=== PATIENT | male | born 1935 | race Caucasian/White ===

== ENCOUNTER 2017-04-17 17:33 | Inpatient (IN) | payer OTHER ==
[~2017-04-17] VITALS: Ht 177.8 cm; Wt 87.5 kg
[~2017-04-17 17:33] MED LIST: ASPIR 8181 M1 PO; CENTRUM SILVER1 EAC1 PO; CIALIS5 MG PO; LIPITOR40 MG PO; LOPRESSOR25 MG PO; MAXZIDE 37.5 M1 EACH PO; MICARDIS40 MG PO; MICARDIS80 MG PO; NEXIUM40 MG PO; PACERONE200 MG PO; PREVACID30 MG PO; PROSTATE SR SO1 EACH PO; VYTORIN 10/21 TABLET PO; XARELTO20 MG PO; ZYRTEC10 M2 PO
[2017-04-17 18:27] LABS: INTER. NORMALIZED RATIO 1.7
[2017-04-17 18:30] LABS: HEMATOCRIT 18.6 % (38.0-50.0); MCH 18.5 PG (29.0-34.0); MCHC 26.9 G/DL (30.0-36.0); MCV 68.9 FL (86-99); NRBC (%) 0.3 /100 WBC (0-0); PLATELET COUNT 312 K/uL (156-360); PTT 38.2 SEC (25-37); RBC DIS.WIDTH-CV 16.1 % (11.8-14.6); RBC DIS.WIDTH-SD 40.1 % (39-53); WHITE BLOOD COUNT 7.4 K/uL (4.1-10.2)
[2017-04-17 18:43] LABS: CHLORIDE 110 MEQ/L (99-109); SODIUM 141 MEQ/L (136-147)
[2017-04-17 18:48] LABS: CREATININE 1.2 MG/DL (0.6-1.3); GFR ESTIMATE (CALCULATED) > 59 mL/min/ (58.99-99999); GLUCOSE 109 mg/dL (70-99); UREA NITROGEN (BUN) 23 mg/dL (9-23)
[2017-04-17 19:56] VITALS: BP 137/68
[2017-04-17 20:18] VITALS: BP 166/88
[2017-04-17 21:18] VITALS: BP 148/70
[2017-04-17 21:57] VITALS: BP 187/88
[2017-04-17 22:31] VITALS: BP 165/85
[2017-04-17 22:59] VITALS: BP 162/66
[2017-04-18] VITALS (16 sets, daily range): BP systolic 132–189; BP diastolic 64–90
[2017-04-18 07:19] LABS: HEMATOCRIT 21.4 % (38.0-50.0); HEMOGLOBIN 6.3 G/DL (12.5-16.6); MCH 21.4 PG (29.0-34.0); MCHC 29.4 G/DL (30.0-36.0); MCV 72.5 FL (86-99); NRBC (%) 0.3 /100 WBC (0-0); PLATELET COUNT 250 K/uL (156-360); RBC DIS.WIDTH-CV 18.1 % (11.8-14.6); RBC DIS.WIDTH-SD 46.5 % (39-53); RED BLOOD COUNT 2.95 M/uL (4.00-5.50); WHITE BLOOD COUNT 6.6 K/uL (4.1-10.2)
[2017-04-18 07:21] LABS: INTER. NORMALIZED RATIO 1.4
[2017-04-18 07:50] LABS: ALBUMIN 3.5 G/DL (3.2-4.8); CHLORIDE 112 MEQ/L (99-109); CREATININE 1.1 MG/DL (0.6-1.3); GFR ESTIMATE (CALCULATED) > 59 mL/min/ (58.99-99999); GLUCOSE 84 mg/dL (70-99); PHOSPHORUS 2.6 mg/dL (2.5-4.9); POTASSIUM 3.9 MEQ/L (3.7-5.4); SODIUM 143 MEQ/L (136-147); UREA NITROGEN (BUN) 20 mg/dL (9-23)
[2017-04-18 15:54] LABS: BASOPHIL (%) 0.6 % (0-1); BASOPHIL COUNT 0.1 K/uL (0-0.1); EOSINOPHIL (%) 0.9 % (0-5); EOSINOPHIL COUNT 0.1 K/uL (0-0.3); HEMATOCRIT 29.4 % (38.0-50.0); IMMATURE GRANULOCYTE (%) 0.9 % (0.0-0.7); LYMPHOCYTE (%) 16.8 % (15-42); LYMPHOCYTE COUNT 1.6 K/uL (1.0-2.8); MCH 22.4 PG (29.0-34.0); MCHC 29.9 G/DL (30.0-36.0); MCV 74.8 FL (86-99); MONOCYTE (%) 10.1 % (3-12); NEUTROPHIL (%) 70.7 % (45-76); NEUTROPHIL COUNT 6.8 K/uL (1.8-6.4); NRBC (%) 0.6 /100 WBC (0-0); PLATELET COUNT 289 K/uL (156-360); RBC DIS.WIDTH-CV 18.9 % (11.8-14.6); RBC DIS.WIDTH-SD 50.7 % (39-53); WHITE BLOOD COUNT 9.6 K/uL (4.1-10.2)
[2017-04-18 15:55] LABS: HEMOGLOBIN 8.8 G/DL (12.5-16.6); RED BLOOD COUNT 3.93 M/uL (4.00-5.50)
[2017-04-18 22:48] LABS: HEMATOCRIT 28.2 % (38.0-50.0); HEMOGLOBIN 8.5 G/DL (12.5-16.6); MCV 74.4 FL (86-99)
[2017-04-19] VITALS (13 sets, daily range): BP systolic 137–178; BP diastolic 66–83
[2017-04-19 05:24] LABS: BASOPHIL (%) 0.7 % (0-1); BASOPHIL COUNT 0.1 K/uL (0-0.1); EOSINOPHIL (%) 1.5 % (0-5); EOSINOPHIL COUNT 0.1 K/uL (0-0.3); HEMATOCRIT 28.3 % (38.0-50.0); HEMOGLOBIN 8.5 G/DL (12.5-16.6); IMMATURE GRANULOCYTE (%) 0.7 % (0.0-0.7); LYMPHOCYTE (%) 14.3 % (15-42); LYMPHOCYTE COUNT 1.3 K/uL (1.0-2.8); MCH 22.3 PG (29.0-34.0); MCV 74.3 FL (86-99); MONOCYTE (%) 9.8 % (3-12); MONOCYTE COUNT 0.9 K/uL (0-0.8); NEUTROPHIL COUNT 6.4 K/uL (1.8-6.4); NRBC (%) 0.3 /100 WBC (0-0); PLATELET COUNT 282 K/uL (156-360); RBC DIS.WIDTH-CV 18.6 % (11.8-14.6); RBC DIS.WIDTH-SD 49.6 % (39-53); RED BLOOD COUNT 3.81 M/uL (4.00-5.50); WHITE BLOOD COUNT 8.8 K/uL (4.1-10.2)
[2017-04-19 05:40] LABS: ALBUMIN 4.1 G/DL (3.2-4.8); CHLORIDE 107 MEQ/L (99-109); GFR ESTIMATE (CALCULATED) > 59 mL/min/ (58.99-99999); GLUCOSE 83 mg/dL (70-99); PHOSPHORUS 2.6 mg/dL (2.5-4.9); POTASSIUM 4.1 MEQ/L (3.7-5.4); SODIUM 141 MEQ/L (136-147); UREA NITROGEN (BUN) 14 mg/dL (9-23)
[2017-04-20 05:22] VITALS: BP 161/76
[2017-04-20 05:37] LABS: BASOPHIL (%) 0.6 % (0-1); BASOPHIL COUNT 0.1 K/uL (0-0.1); EOSINOPHIL (%) 2.7 % (0-5); EOSINOPHIL COUNT 0.2 K/uL (0-0.3); HEMATOCRIT 32.5 % (38.0-50.0); HEMOGLOBIN 9.8 G/DL (12.5-16.6); IMMATURE GRANULOCYTE (%) 0.3 % (0.0-0.7); LYMPHOCYTE (%) 20.3 % (15-42); LYMPHOCYTE COUNT 1.6 K/uL (1.0-2.8); MCH 22.5 PG (29.0-34.0); MCHC 30.2 G/DL (30.0-36.0); MCV 74.7 FL (86-99); MONOCYTE (%) 11.2 % (3-12); MONOCYTE COUNT 0.9 K/uL (0-0.8); NEUTROPHIL (%) 64.9 % (45-76); NEUTROPHIL COUNT 5.1 K/uL (1.8-6.4); PLATELET COUNT 240 K/uL (156-360); RBC DIS.WIDTH-SD 50.8 % (39-53); RED BLOOD COUNT 4.35 M/uL (4.00-5.50); WHITE BLOOD COUNT 7.9 K/uL (4.1-10.2)
[2017-04-20 06:14] LABS: ALBUMIN 3.6 G/DL (3.2-4.8); ALKALINE PHOSPHATASE 79 IU/L (3-129); ALT (GPT) 25 IU/L (3-49); AST (GOT) 23 IU/L (2-34); CHLORIDE 108 MEQ/L (99-109); GFR ESTIMATE (CALCULATED) > 59 mL/min/ (58.99-99999); GLUCOSE 89 mg/dL (70-99); POTASSIUM 3.7 MEQ/L (3.7-5.4); SODIUM 142 MEQ/L (136-147); TOTAL BILIRUBIN 1.9 MG/DL (0.0-1.0); TOTAL PROTEIN 5.4 G/DL (6.4-8.3); UREA NITROGEN (BUN) 10 mg/dL (9-23)
[2017-04-20 08:17] VITALS: BP 173/83
[2017-04-20 12:00] VITALS: BP 160/84
[2017-04-20] MEDS ORDERED: AMLODIPINE BESYL5 MG PO (13:17)
== END 2017-04-20 14:50 | disposition home or self-care (01) | DRG 378 ==
LOC: EME 17:33 → 3EAST 19:10 → EDOF 19:10 → ENRESERV 19:30 → 3EAST 21:46
PROVIDERS: Emergency Medicine; Family Medicine; Internal Medicine Gastroenterology
PROC: 30233N1 Transfusion of Nonautologous Red Blood Cells into Peripheral Vein, Percutaneous Approach (ICD-10-PCS; principal; 2017-04-17)
PROC: 0DB68ZX Excision of Stomach, Via Natural or Artificial Opening Endoscopic, Diagnostic (ICD-10-PCS; 2017-04-18)
DX: K92.1 Melena (principal); F05 Delirium due to known physiological condition; D64.9 Anemia, unspecified; L40.9 Psoriasis, unspecified; N40.0 Benign prostatic hyperplasia without lower urinary tract symptoms; K21.9 Gastro-esophageal reflux disease without esophagitis; J44.9 Chronic obstructive pulmonary disease, unspecified; I48.0 Paroxysmal atrial fibrillation; I10 Essential (primary) hypertension; E78.5 Hyperlipidemia, unspecified; K31.7 Polyp of stomach and duodenum; J30.9 Allergic rhinitis, unspecified; R79.1 Abnormal coagulation profile; T45.515A Adverse effect of anticoagulants, initial encounter; Z86.010 Personal history of colon polyps; Z79.01 Long term (current) use of anticoagulants; Z87.891 Personal history of nicotine dependence; Z83.3 Family history of diabetes mellitus; Z91.19 Patient's noncompliance with other medical treatment and regimen; Z82.49 Family history of ischemic heart disease and other diseases of the circulatory system; Z80.0 Family history of malignant neoplasm of digestive organs; Z80.1 Family history of malignant neoplasm of trachea, bronchus and lung
CPT/HCPCS: 36415; 80048; 80053; 80069; 82728; 83540; 84466; 85014; 85018; 85025; 85027; 85610; 85730; 86850; 86900; 86901; 86920; 88305; 88342 TC; 93005; 93306; 99281; 99285; C9113; J1630; J2060; J7040; P9016; S0028